=== PATIENT | female | born 1990 | race Caucasian/White ===

== ENCOUNTER 2017-06-17 06:19 | Emergency (ER) | payer MEDICAID ==
[2014-10-22 13:58] VITALS: BMI 30.4
[~2017-06-17 06:19] MED LIST: IBUPROFEN600 MG PO; PERCOCET 5-3251 TAB PO; PRENATAL COMPLE1 TAB PO; ZOLOFT50 MG PO
== END 2017-06-17 07:50 | disposition home or self-care (01) ==
LOC: D.ER 06:19
DX: J20.9 Acute bronchitis, unspecified (principal); F17.200 Nicotine dependence, unspecified, uncomplicated

== ENCOUNTER 2018-02-08 23:09 | Emergency (ER) | payer SELFPAY ==
[~2018-02-08] VITALS: Ht 165.1 cm; Wt 56.8 kg
[2018-02-08 23:17] VITALS: Ht 165.1 cm; Wt 56.8 kg
[2018-02-08 23:37] LABS: APPEARANCE CLEAR (CLEAR); BILIRUBIN NEGATIVE (NEGATIVE); COLOR YELLOW (YELLOW); GLUCOSE NEGATIVE (NEGATIVE); KETONE NEGATIVE (NEGATIVE); NITRITE NEGATIVE (NEGATIVE); PROTEIN NEGATIVE (NEGATIVE); SPECIFIC GRAVITY 1.015 (1.005-1.020); UROBILINOGEN NORMAL (NORMAL)
[2018-02-08 23:38] LABS: HCG URINE NEGATIVE (NEGATIVE)
[2018-02-09] MEDS ORDERED: SUMATRIPTAN SUC25 MG PO (02:48)
[2018-02-09 04:02] VITALS: BP 126/72
== END 2018-02-09 03:40 | disposition home or self-care (01) ==
LOC: D.ER 23:09
PROVIDERS: Family Medicine
DX: G43.909 Migraine, unspecified, not intractable, without status migrainosus (principal); M54.2 Cervicalgia

== ENCOUNTER 2018-03-05 10:02 | Emergency (ER) | payer SELFPAY ==
[~2018-03-05] VITALS: Ht 165.1 cm; Wt 70.5 kg
[~2018-03-05 10:02] MED LIST changes: +SUMATRIPTAN SUC25 MG PO
[2018-03-05 10:19] VITALS: Ht 165.1 cm; Wt 70.5 kg
[2018-03-05] MEDS ORDERED: VIBRAMYCIN 100100 MG PO (11:12)
[2018-03-05] MEDS ORDERED: PHENERGAN DM SYR5 ML PO (11:12)
[2018-03-05 11:33] VITALS: BP 136/82
== END 2018-03-05 11:37 | disposition home or self-care (01) ==
LOC: D.ER 10:02
DX: J06.9 Acute upper respiratory infection, unspecified (principal); J01.90 Acute sinusitis, unspecified; J02.9 Acute pharyngitis, unspecified